=== PATIENT | female | born 1985 ===

== ENCOUNTER 2018-07-31 09:48 | Emergency (ER) | payer OTHER ==
[2018-07-31 10:04] VITALS: TEMP 99.3; O2SAT 99
[2018-07-31] MEDS ORDERED: Sodium Chloride 0.9% 1,000 ML IV STA (10:22)
[2018-07-31 10:43] LABS: BASO # 0.01 K/mm3 (0.0-2.0); BASO % 0.1 % (0.0-3.0); EOS # 0.1 (0.0-0.7); HEMOGLOBIN 13.1 g/dL (12.0-16.0); LYMPH # 2.8 (1.2-3.4); LYMPH % 40.4 % (22.0-35.0); MEAN CELL VOLUME 83.8 fl (80.0-105.0); MEAN CORPUSCULAR HEMOGLOBIN 26.8 pg (25.0-35.0); MEAN PLATELET VOLUME 9.8 fl (7.0-11.0); MONO # 0.5 (0.1-0.6); MONO % 7.3 % (1.0-6.0); RBC 4.89 10^6/uL (3.5-6.1); RED CELL DISTRIBUTION WIDTH 16.2 % (11.5-14.5)
[2018-07-31 10:44] LABS: URINE BILIRUBIN NEGATIVE (NEGATIVE); URINE BLOOD NEGATIVE (NEGATIVE); URINE GLUCOSE (UA) NEGATIVE (NEGATIVE); URINE LEUKOCYTE ESTERASE NEGATIVE Leu/uL (NEGATIVE); URINE PROTEIN TRACE mg/dL (<30 mg/dL)
[2018-07-31 10:49] LABS: URINE APPEARANCE CLEAR (CLEAR); URINE COLOR YELLOW (YELLOW)
[2018-07-31 10:50] LABS: ALB/GLOB RATIO 1.1 (1.1-1.8); ALBUMIN 4.3 g/dL (3.0-4.8); ALT/SGPT 12 U/L (7-56); AST/SGOT 20 U/L (14-36); BLOOD UREA NITROGEN 10 mg/dL (7-21); CALCIUM 9.5 mg/dL (8.4-10.5); GFR NON-AFRICAN AMERICAN > 60; LIPASE 114 U/L (23-300)
[2018-07-31 10:51] LABS: URINE BACTERIA LARGE /hpf; URINE RBC 0 - 2 /hpf (0-2)
[2018-07-31 10:52] LABS: URINE FINE GRANULAR CAST 0 - 2 /hpf; URINE HYALINE CAST 0 - 2 /hpf
--- NOTE | 2018-07-31 11:05 | US ---
Date of service: 07/31/2018 HISTORY: epigastric and RUQ abd pain COMPARISON: None. TECHNIQUE: Sonographic evaluation of the abdomen. FINDINGS: LIVER: Measures 16.4 cm. Normal echogenicity of the liver parenchyma. No mass. No intrahepatic bile duct dilatation. GALLBLADDER: Cholelithiasis. No mural thickening. No pericholecystic fluid. Negative sonographic Trivedi sign. COMMON BILE DUCT: Measures 4 mm. No stones. No dilatation. PANCREAS: Unremarkable as visualized. No mass. No ductal dilatation. RIGHT KIDNEY: Measures 9.9cm. Normal echogenicity. No calculus, mass, or hydronephrosis. LEFT KIDNEY: Measures 10.4cm. Normal echogenicity. No calculus, mass, or hydronephrosis. SPLEEN: Normal in size and contour. No mass. AORTA: No aneurysmal dilatation. IVC: Unremarkable. OTHER FINDINGS: None. IMPRESSION: Cholelithiasis without sonographic evidence of cholecystitis. Otherwise unremarkable examination.
[2018-07-31 11:25] VITALS: BP 107/74; PULSE 82; RESP 18
--- NOTE | 2018-07-31 12:17 | ED PDOC ---
Arrival/HPI - General Chief Complaint: Abdominal Pain Time Seen by Provider: 07/31/18 10:01 Historian: Patient - History of Present Illness Narrative History of Present Illness (Text): 07/31/18 12:28 33 year old female, whose past medical history includes gastritis, who presents to the emergency department complaining of on and off epigastric pain for the past year. Patient states her symptoms started again this morning at 3 am. She describes her pain as uncomfortable and located in the epigastric region, which feels similar to previous symptoms shes been having for the past year. She reports 2 episodes of vomiting since 3 am. Patient denies pain radiating to her back, fevers, chills, headache, dizziness, chest pain, shortness of breath, dyspnea on exertion, cough, diarrhea, back pain, neck pain, or any other complaint. Time/Duration: 24 hours Symptom Onset: Gradual Symptom Course: Unchanged Activities at Onset: Light Context: Home Past Medical History - Provider Review Nursing Documentation Reviewed: Yes - Cardiac Hx Cardiac Disorders: No - Pulmonary Hx Respiratory Disorders: No - Neurological Hx Neurological Disorder: No - HEENT Hx HEENT Disorder: No - Renal Hx Renal Disorder: No - Endocrine/Metabolic Hx Endocrine Disorders: No - Hematological/Oncological Hx Blood Disorders: No - Integumentary Hx Dermatological Disorder: No - Musculoskeletal/Rheumatological Hx Musculoskeletal Disorders: No - Gastrointestinal Hx Gastrointestinal Disorders: Yes Other/Comment: ON AND OFF ABD PAIN - Genitourinary/Gynecological Hx Genitourinary Disorders: No - Psychiatric Hx Psychophysiologic Disorder: No Hx Substance Use: No - Surgical History Hx Section: Yes Family/Social History - Physician Review Nursing Documentation Reviewed: Yes Family/Social History: No Known Family HX Smoking Status: Smoker Currrent Status Unknown Hx Alcohol Use: Yes Frequency of alcohol use: Socially Hx Substance Use: No Allergies/Home Meds Allergies/Adverse Reactions: Allergies No Known Allergies Allergy (Verified 07/31/18 09:57) Review of Systems - Physician Review All systems were reviewed & negative as marked: Yes - Review of Systems Constitutional: absent: Fevers Respiratory: absent: SOB, Cough Cardiovascular: absent: Chest Pain Gastrointestinal: Abdominal Pain, Vomiting. absent: Diarrhea Musculoskeletal: absent: Back Pain, Neck Pain Neurological: absent: Headache, Dizziness Physical Exam Vital Signs Reviewed: Yes Vital Signs Temp Pulse Resp BP Pulse Ox 07/31/18 11:22 82 18 107/74 99 07/31/18 09:58 99.3 F 98 H 17 126/85 99 Temperature: Afebrile Blood Pressure: Normal Pulse: Tachycardic Respiratory Rate: Normal Appearance: Positive for: Well-Appearing, Non-Toxic, Comfortable Pain Distress: None Mental Status: Positive for: Alert and Oriented X 3 - Systems Exam Head: Present: Atraumatic, Normocephalic Pupils: Present: PERRL Extroacular Muscles: Present: EOMI Conjunctiva: Present: Normal Mouth: Present: Moist Mucous Membranes Neck: Present: Normal Range of Motion Respiratory/Chest: Present: Clear to Auscultation, Good Air Exchange. No: Respiratory Distress, Accessory Muscle Use Cardiovascular: Present: Regular Rate and Rhythm, Normal S1, S2. No: Murmurs Abdomen: Present: Tenderness (epigstric tenderness and slight RUQ tenderness), Normal Bowel Sounds. No: Distention, Peritoneal Signs, Rebound, Guarding Back: Present: Normal Inspection. No: CVA Tenderness, Midline Tenderness, Paraspinal Tenderness Upper Extremity: Present: Normal Inspection. No: Cyanosis, Edema Lower Extremity: Present: Normal ROM Neurological: Present: GCS=15, Speech Normal Skin: Present: Warm, Dry, Normal Color. No: Rashes Psychiatric: Present: Alert, Oriented x 3 Medical Decision Making ED Course and Treatment: 07/31/18 12:46 Patient is nontoxic well appearing with stable vital signs presenting with ruq/epigastric abdominal pain since 3am. hx of gastritis and similar pain in the past. CBC wnl CMP wnl Lipase wnl Urinalysis no leukocytes Ultrasound: FINDINGS: LIVER: Measures 16.4 cm. Normal echogenicity of the liver parenchyma. No mass. No intrahepatic bile duct dilatation. GALLBLADDER: Cholelithiasis. No mural thickening. No pericholecystic fluid. Negative sonographic Trivedi sign. COMMON BILE DUCT: Measures 4 mm. No stones. No dilatation. PANCREAS: Unremarkable as visualized. No mass. No ductal dilatation. RIGHT KIDNEY: Measures 9.9cm. Normal echogenicity. No calculus, mass, or hydronephrosis. LEFT KIDNEY: Measures 10.4cm. Normal echogenicity. No calculus, mass, or hydronephrosis. SPLEEN: Normal in size and contour. No mass. AORTA: No aneurysmal dilatation. IVC: Unremarkable. OTHER FINDINGS: None. IMPRESSION: Cholelithiasis without sonographic evidence of cholecystitis. Otherwise unremarkable examination. Patient reassessment: Patient feeling better after medications wants to go home. Discussed all results with patient in depth advised the patient of gallstones on ultrasound. Advised follow-up with the GI doctor and surgeon within the next 2 days. Advised me to return if symptoms worsen persist or if new concerning symptoms develop. 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 Impression: gallstones, abdominal pain Pepcid one tablet daily increase fluids Follow up with the GI doctor within the next 2 days follow up with the surgeon within the next 2 days. Follow up with primary care physician within the next 2 days Return immediately if symptoms worsen persist or if new symptoms develop: High fevers, increasing pain, vomiting, diarrhea or any other concerning symptoms develop Reassessment Condition: Re-examined, Improved - Lab Interpretations Lab Results: Total Bilirubin 0.3 mg/dL (0.2-1.3) 07/31/18 10:25 AST 20 U/L (14-36) 07/31/18 10:25 ALT 12 U/L (7-56) 07/31/18 10:25 Alkaline Phosphatase 93 U/L (38-126) 07/31/18 10:25 Total Protein 8.2 g/dL (5.8-8.3) 07/31/18 10:25 Albumin 4.3 g/dL (3.0-4.8) 07/31/18 10:25 Globulin 4.0 gm/dL 07/31/18 10:25 Albumin/Globulin Ratio 1.1 (1.1-1.8) 07/31/18 10:25 Lipase 114 U/L (23-300) 07/31/18 10:25 Urine Color Yellow (YELLOW) 07/31/18 10:25 Urine Appearance Clear (CLEAR) 07/31/18 10:25 Urine pH 8.0 (4.7-8.0) 07/31/18 10:25 Ur Specific [place] 1.015 (1.005-1.035) 07/31/18 10:25 Urine Protein Trace mg/dL (<30 mg/dL) H 07/31/18 10:25 Urine Glucose (UA) Negative mg/dL (NEGATIVE) 07/31/18 10:25 Urine Ketones Negative mg/dL (NEGATIVE) 07/31/18 10:25 Urine Blood Negative (NEGATIVE) 07/31/18 10:25 Urine Nitrate Negative (NEGATIVE) 07/31/18 10:25 Urine Bilirubin Negative (NEGATIVE) 07/31/18 10:25 Urine Urobilinogen 1.0 E.U./dL (<1 E.U./dL) H 07/31/18 10:25 Ur Leukocyte Esterase Negative Neil/uL (NEGATIVE) 07/31/18 10:25 Urine RBC 0 - 2 /hpf (0-2) 07/31/18 10:25 Urine WBC 1 - 3 /hpf (0-6) 07/31/18 10:25 Ur Epithelial Cells 10 - 12 /hpf (0-5) H 07/31/18 10:25 Urine Bacteria Large /hpf (NONE) 07/31/18 10:25 Hyaline Casts 0 - 2 /hpf (NONE) 07/31/18 10:25 Fine Granular Casts 0 - 2 /hpf (NONE) 07/31/18 10:25 Urine Other Fiber /hpf 07/31/18 10:25 - RAD Interpretation Radiology Orders: 07/31/18 10:22 ABDOMEN COMPLETE [US] Stat - Medication Orders Current Medication Orders: Discontinued Medications Sodium Chloride (Sodium Chloride 0.9%) 1,000 mls @ 999 mls/hr IV .Q1H1M STA Stop: 07/31/18 11:22 Last Admin: 07/31/18 10:32 Dose: 999 mls/hr eMAR Start Stop Document 07/31/18 10:32 BB (Rec: 07/31/18 10:32 BB [id number]) Intravenous Solution Start Date 07/31/18 Start Time 10:32 Pantoprazole Sodium (Protonix Inj) 40 mg IVP STAT STA Stop: 07/31/18 10:23 Last Admin: 07/31/18 10:30 Dose: 40 mg IVP Administration Document 07/31/18 10:30 BB (Rec: 07/31/18 10:32 BB [id number]) Charges for Administration # of IVP Administrations 1 - Scribe Statement The provider has reviewed the documentation as recorded by the Makaylaibedison Sol Provider Scribe Attestation: All medical record entries made by the Scribe were at my direction and personally dictated by me. I have reviewed the chart and agree that the record accurately reflects my personal performance of the history, physical exam, medical decision making, and the department course for this patient. I have also personally directed, reviewed, and agree with the discharge instructions and disposition. Disposition/Present on Arrival - Present on Arrival Any Indicators Present on Arrival: No History of DVT/PE: No History of Uncontrolled Diabetes: No Urinary Catheter: No History of Decub. Ulcer: No History Surgical Site Infection Following: None - Disposition Have Diagnosis and Disposition been Completed?: Yes Diagnosis: Abdominal pain, Gallstones Disposition: HOME/ ROUTINE Disposition Time: 12:25 Patient Plan: Discharge Condition: GOOD Discharge Instructions (ExitCare): Acute Abdomen (Belly Pain), Adult (DC), Gallstones Print Language: VINCENTIAN Additional Instructions: Pepcid one tablet daily increase fluids Follow up with the GI doctor within the next 2 days follow up with the surgeon within the next 2 days. Follow up with primary care physician within the next 2 days Return immediately if symptoms worsen persist or if new symptoms develop: High fevers, increasing pain, vomiting, diarrhea or any other concerning symptoms develop Prescriptions: Famotidine [Pepcid] 20 mg PO DAILY #30 tab Referrals: Cecilio Davis MD [Staff Provider] - Follow up with primary Horacio Moreira MD [Medical Doctor] - Follow up with primary Mariella James MD [Medical Doctor] - Follow up with primary [facility] [employer] [Outside] - Follow up with primary Forms: [facility] (Faroese), WORK NOTE
== END 2018-07-31 13:35 | disposition home or self-care (01) ==
LOC: ED 09:48 → MERGE 09:48 → ED 13:35
DX: K80.80 Other cholelithiasis without obstruction (principal); R10.9 Unspecified abdominal pain
CPT/HCPCS: 76700; 80053; 81001; 81025; 83690; 85025; 96374; 99284; C9113; J7030